=== PATIENT | male | born 1950 | race Caucasian/White ===

== ENCOUNTER 2017-06-27 14:40 | Inpatient (IN) | payer OTHER, MEDICARE ==
[~2017-06-27] VITALS: Ht 180.3 cm; Wt 68.0 kg
[2017-06-27 14:57] VITALS: BP 108/57
--- NOTE | 2017-06-27 15:02 | NUR ---
PT IS 66Y/O [employer] B[employer] TRIM TO ER FOR REPORTED THAT HE FELL AT HOME TODAY, PER [employer] CONSULTANT THAT PT DID NOT HIT THE HEAD AT THE TIME HOWEVER [employer] CONSULTANT CAUGHT HIM AND LET HIM SLOWLY, ALSO PER [employer] CONSULTANT PT HAS BEEN HAD RECTAL BLEEDING AND THAT HAPPENED AFTER PT HAD COLONOSCOPY RECENTLY, PT HAD HX DM TYE2, HTN, DEMENTIA, PROSTATE CANCER AND AUTISM. ALSO PT HX BORN WITH PREMATURE AND LEGALLY BLINDNESS SINCE BORN. PT CURRENTLY IN BED WITH [employer]IONS CONSULTANT BY BEDSIDE. PT IS AWAKE AND ALERT TO NAME, RESP EVEN AND REGULAR.
--- NOTE | 2017-06-27 15:52 | NUR ---
ER MD DR. GRANDA EVALUATING PT AT BEDSIDE.
[2017-06-27] MEDS ORDERED: LORazepam 2 MG/ML VIAL IVP ONE (16:05)
--- NOTE | 2017-06-27 16:29 | NUR ---
PT O2 SATURATION 100% ON ROOM AIR; RR EVEN/UNLABORED AT THIS TIME; EQUAL RISE/FALL OF CHEST NOTED AT THIS TIME; PT STATES " CAN WE NOT PUT THE OXYGEN ON HIM? IT WILL IRRITATE HIM AND HE WILL TAKE IT OFF"; ER MD DR. GRANDA NOTIFIED; PT POSITIONED FOR COMFORT; WILL CONTINUE TO MONITOR.
[2017-06-27 16:45] LABS: BASOPHILS # (AUTO) 0.2 K/uL (0.00-0.22); EOSINOPHILS # (AUTO) 0.1 K/uL (0-0.4); HEMATOCRIT 24.8 % (36-52); HEMOGLOBIN 7.8 g/dL (12.0-18.0); LYMPHOCYTES # (AUTO) 0.5 K/uL (2.0-11.5); MEAN CORPUSCULAR HEMOGLOBIN 25 pg (27-31); MEAN CORPUSCULAR HGB CONC 32 g/dL (33-37); MEAN CORPUSCULAR VOLUME 78 fL (80-94); MONOCYTES # (AUTO) 0.2 K/uL (0.8-1.0); NEUTROPHILS # (AUTO) 7.9 K/uL (1.8-7.7); PLATELET COUNT (AUTO) 241 K/uL (140-450); RED BLOOD CELL COUNT(AUTO) 3.18 MIL/uL (4.20-6.10); RED CELL DISTRIBUTION WIDTH 14.2 % (11.6-13.7); WHITE BLOOD COUNT (AUTO) 8.9 K/uL (4.8-10.8)
[2017-06-27 16:48] LABS: ANION GAP 14.3 (8-16); CARBON DIOXIDE 29.9 mmol/L (21-32); CREATININE 1.1 mg/dL (0.7-1.3); POTASSIUM 3.2 mmol/L (3.5-5.1)
[2017-06-27 16:54] LABS: ALBUMIN 3.5 g/dL (3.4-5.0); TOTAL BILIRUBIN 0.3 mg/dL (0.0-1.0)
[2017-06-27 16:59] LABS: PHENYTOIN (DILANTIN) 0.5 ug/ml (10.0-20.0)
--- NOTE | 2017-06-27 16:59 | NUR ---
PT TAKEN TO CT VIA [facility] ACCOMPANIED BY [facility] AT THIS TIME.
[2017-06-27] MEDS ORDERED: MORPHINE SULFATE 2 MG/ML SYR IVP PRN (17:45)
[2017-06-27] MEDS ORDERED: ONDANSETRON 4 MG/2 ML VIAL IVP PRN (17:45)
[2017-06-27] MEDS ORDERED: POTASSIUM CHLORIDE 10 MEQ TABER PO ONE (17:45)
--- NOTE | 2017-06-27 18:04 | NUR ---
give reported to GUMARO Abbott over tele units.
--- NOTE | 2017-06-27 18:06 | NUR ---
took pt to restroom with limit assisted at this time.
--- NOTE | 2017-06-27 18:20 | NUR ---
Patient will be admitted to care of DR GARCIAS. Admited to TELE . Will go to room 107/A. Belongings list completed. Report to ALONDRA NAIK.
[2017-06-27] MEDS: NACL 0.9% 1,000 ML IV SCH ×2 (19:10→22:06)
--- NOTE | 2017-06-27 19:15 | NUR ---
BLOOD TRANSFUSION INITIATED
--- NOTE | 2017-06-27 19:23 | NUR ---
PATIENT REPORT GIVEN AT BEDSIDE. PATIENT ENDORSED IN STABLE CONDITION
--- NOTE | 2017-06-27 19:24 | NUR ---
ADMITTED A 66M FROM ER. REPORT GIVEN BY AM NURSE. WITH I UNIT PRBC BLOOD TRANSFUSION ALREADY STARTED ON THE RT WRIST #20. CLEAR AND PATENT . PT IS AWAKE ,BUT LEGALLY BLIND. ON TELE MONITOR. UNABLE TO GET ANY MEDICAL INFORMATION BUR TO MENTAL STATUS. NO FAMILY MEMBERS PRESENT. VITAL SIGNS TAKEN AND STABLE. SKIN INTACT. BED ON LOW POSITION, SIDE RAILS UP WITH PADS FOR SEIZURE PRECAUTIONS. FREQUENT ROUNDS NEEDED. CALL LIGHT PLACE WITHIN EASY REACH. WILL CONTINUE TO MONITOR.
[2017-06-27 19:56] VITALS: BP 124/60
--- NOTE | 2017-06-27 20:30 | NUR ---
TRIED CALLING ROBYN BEY ,SISTER ON PHONE BUT NO ANSWER. WILL TRY AGAIN LATER.
--- NOTE | 2017-06-27 20:40 | NUR ---
BLOOD TRANSFUSION STILL GOING ON. VITAL SIGNS STABLE. AFEBRILE. NO REACTION TO BLOOD NOTED AT THIS TIME. WILL CONTINUE TO MONITOR.
--- NOTE | 2017-06-27 21:20 | NUR ---
PT REFUSED SCD MACHINE . WILL TRY LATER.
--- NOTE | 2017-06-27 21:50 | NUR ---
BLOOD TRANSFUSION DONE. VITAL SIGNS TAKEN. STABLE. NO REACTION NOTED ON THE BLOOD. WILL ORDER REPEAT HGB AND HCT AT 2350.
--- NOTE | 2017-06-27 22:18 | NUR ---
TRIED CALLING AGAIN SISTER ROBYN BUT STILL THE SAME HER PHONE IS FULL AND CAN'T RECEIVE ANY CALL AT THIS TIME. WILL TRY AGAIN LATER IN AM.
--- NOTE | 2017-06-27 22:35 | NUR ---
@2233 HR ON THE MONITOR 38/MIN. CHECKED ON PT . SLEEPING AT THIS TIME. NO S/S OF ANY DISTRESS NOTED. AWAKEN, YELLING AND THEN HR BACK TO 62/MIN. WILL CONTINUE TO MONITOR.
[2017-06-28 00:12] VITALS: BP 169/62
[2017-06-28 00:15] LABS: HEMATOCRIT 29.5 % (36-52); HEMOGLOBIN 9.1 g/dL (12.0-18.0)
--- NOTE | 2017-06-28 00:40 | NUR ---
PT VERY AGITATED . TRYING TO GET OUT OF BED ,YELLING AND HARD TO CONTROL. PAGED DR. PANDA, DR. GARCIAS MENSWEAR SALESPERSON. CALLED BACK AND MADE AWARE WITH ORDER.
[2017-06-28] MEDS ORDERED: BENA20TA PO (00:43)
[2017-06-28] MEDS ORDERED: KEP500 PO (00:43)
[2017-06-28] MEDS: LORazepam 2 MG/ML VIAL IVP PRN ×2 (00:46→06:59)
[2017-06-28] MEDS ORDERED: LORazepam 2 MG/ML VIAL ONE (00:53)
--- NOTE | 2017-06-28 02:19 | NUR ---
PAGED DR. GARCIAS WAS PAGED FOR SEVERAL EPISODES OF SB LOWEST HR 38 -41/MIN. ASYMPTOMATIC. CALLED BACK. MADE AWARE .NO NEW ORDER MADE LONG PT IS ASYMPTOMATIC.WILL CONTINUE TO MONITOR,
--- NOTE | 2017-06-28 02:26 | NUR ---
IV ACCESS PULLED OUT . UNABLE TO START A NEW IV BY GUMARO THOMAS. CALLED ER AND GUMARO WADDELL. STARTED A NEW IV ACCESS ON THE RT AC#20.CLEAR AND PATENT. WRAPPED WITH KERLIX . WILL CONTINUE TO MONITOR. Addendum: 06/28/17 at 0227 by Mer Dominguez RN IV INSERTED @0125 .
[2017-06-28] MEDS ORDERED: BICA50TA1 PO (03:03)
[2017-06-28] MEDS ORDERED: TAMS0.4C96 PO (03:05)
[2017-06-28] MEDS ORDERED: LAM25 PO (03:11)
[2017-06-28] MEDS ORDERED: LORA-476 PO (03:11)
[2017-06-28] MEDS ORDERED: METF1000 PO (03:21)
[2017-06-28] MEDS ORDERED: FLUR15CA PO (03:21)
[2017-06-28] MEDS ORDERED: ATOR10TA PO (03:21)
[2017-06-28] MEDS ORDERED: TRAZ-286 PO (03:21)
[2017-06-28] MEDS ORDERED: ASPI81CT89 PO (03:21)
[2017-06-28] MEDS ORDERED: DONE5TAB6 PO (03:21)
[2017-06-28] MEDS: NACL 0.9% 1,000 ML IV SCH (03:42)
--- NOTE | 2017-06-28 04:05 | NUR ---
PT IS AWAKE AND STILL TRYING TO GET OUT OF BED. VOIDED ON THE FLOOR. CLEANED AND KEPT DRY. PT ASSISTED TO SIT UP ON THE CHAIR. WILL CONTINUE TO MONITOR.
[2017-06-28 04:06] VITALS: BP 128/89
--- NOTE | 2017-06-28 05:17 | NUR ---
PT HAS BEEN KEPT NPO SINCE ADMISSION.
--- NOTE | 2017-06-28 06:09 | NUR ---
NO STOOL NOR ANY RECTAL BLEEDING NOTED DURING THE SHIFT.
[2017-06-28 06:51] LABS: BASOPHILS # (AUTO) 0.1 K/uL (0.00-0.22); BASOPHILS % (AUTO) 1.5 % (0.0-2.0); EOSINOPHILS # (AUTO) 0.1 K/uL (0-0.4); HEMATOCRIT 33.5 % (36-52); HEMOGLOBIN 10.8 g/dL (12.0-18.0); LYMPHOCYTES # (AUTO) 0.8 K/uL (2.0-11.5); LYMPHOCYTES % (AUTO) 10.3 % (20.5-51.1); MEAN CORPUSCULAR HEMOGLOBIN 26 pg (27-31); MEAN CORPUSCULAR HGB CONC 32 g/dL (33-37); MEAN CORPUSCULAR VOLUME 80 fL (80-94); MONOCYTES # (AUTO) 0.5 K/uL (0.8-1.0); MONOCYTES % (AUTO) 5.7 % (1.7-9.3); NEUTROPHILS # (AUTO) 6.4 K/uL (1.8-7.7); NEUTROPHILS % (AUTO) 81.5 % (42.2-75.2); PLATELET COUNT (AUTO) 271 K/uL (140-450); RED CELL DISTRIBUTION WIDTH 14.2 % (11.6-13.7)
[2017-06-28 06:59] LABS: ANION GAP 11.6 (8-16); CARBON DIOXIDE 28.7 mmol/L (21-32); CREATININE 0.9 mg/dL (0.7-1.3); POTASSIUM 3.3 mmol/L (3.5-5.1)
--- NOTE | 2017-06-28 06:59 | NUR ---
PT STARTING TO REALLY GET VERY AGITATED AGAIN. ATIVAN 1 MG IVP GIVEN ORDERED PRN.
[2017-06-28 07:22] LABS: WHITE BLOOD COUNT (AUTO) 7.9 K/uL (4.8-10.8)
--- NOTE | 2017-06-28 07:25 | NUR ---
PT REPORT RECEIVED FROM THE NIGHT RN AT THE BEDSIDE. PT IS AWAKE, ALERT, ORIENTED X1. PT IS ABLE TO FOLLOW SIMPLE COMMANDS. IV NOTED ON THE RT WRIST #20, INFUSING WELL. PT IS LEGALLY BLIND, SIGN IN PLACE. ON TELE MONITOR. VITAL SIGNS TAKEN AND STABLE. SKIN INTACT. BED IN LOW POSITION, SIDE RAILS UP WITH PADS FOR SEIZURE PRECAUTIONS. CALL LIGHT WITHIN REACH. WILL CONTINUE TO MONITOR.
--- NOTE | 2017-06-28 07:28 | NUR ---
ENDORSED PT IN STABLE CONDITION TO AM NURSE FOR CONTINUITY OF CARE.
[2017-06-28 08:00] VITALS: BP 139/82
[2017-06-28] MEDS ORDERED: PANTOPRAZOLE 40 MG INJ VIAL IVP SCH (09:00)
--- NOTE | 2017-06-28 09:02 | NUR ---
FNS REFERRAL RECEIVED ON 06/27 FOR "NOT APPLICABLE" DOES NOT MEET HIGH NUTRITION RISK CRITERIA. PATIENT HAS BEEN SCREENED AND CATEGORIZED MODERATE NUTRITION RISK. PATIENT WILL BE SEEN WITHIN 3-5 DAYS OF ADMISSION. 06/30/17-07/02/[address]
--- NOTE | 2017-06-28 09:30 | NUR ---
PT SEEN BY DR. PANDA. DR PANDA WILL CONTACT DR. CALABRESE ABOUT COLONOSCOPY. PT IS STABLE, NO DISTRESS NOTED.
[2017-06-28] MEDS ORDERED: BOWEL EVACUANT DRINK 4,000 ML PDS PO SCH (10:00)
--- NOTE | 2017-06-28 10:22 | NUR ---
CM NOTE INITIAL REVIEW FAXED TO [facility] / FAX# [phone], ATTN: LARS #[phone]
--- NOTE | 2017-06-28 10:35 | NUR ---
TOOK PT TO THE RESTROOM, PT HAD A BM. STOOL IS HARD. NO BLEEDING NOTED IN THE STOOL, HOWEVER, THERE IS MINIMAL BLEEDING NOTED ON THE TOILET PAPER.
[2017-06-28] MEDS ORDERED: MIDAZOLAM 2 MG/2 ML VIAL ONE (11:22)
[2017-06-28] MEDS ORDERED: fentaNYL 0.05 MG/ML VIAL ONE (11:22)
[2017-06-28] MEDS ORDERED: diphenhydrAMINE 50 MG/ML VIAL ONE (11:23)
[2017-06-28 12:00] VITALS: BP 135/77
[2017-06-28] MEDS ORDERED: FERR325E14 PO ×2 (12:59→16:02)
[2017-06-28] MEDS ORDERED: LACT10SO1 PO ×2 (13:00→16:02)
--- NOTE | 2017-06-28 13:00 | NUR ---
PT HAD LUNCH, FULL LIQ DIET. NO SOB OR DISTRESS NOTED.
--- NOTE | 2017-06-28 16:00 | NUR ---
PT DISCHARGED PER MD ORDER. MEDICATION TEACHING AND DISCHARGE INSTRUCTION GIVEN. PT'S SISTER VERBALIZED UNDERSTANDING. PT'S SISTER SIGNED DISCHARGE PAPER WORK. PT VITALS TAKEN. IV CATH DC'ED, TIP INTACT, PRESSURE APPLIED. PT DISCHARGED IN STABLE CONDITION AND WITH ALL HIS BELONGINGS.
[2017-06-28] MEDS ORDERED: MESA500C PO (16:02)
== END 2017-06-28 16:00 | disposition home or self-care (01) | DRG 253 ==
LOC: MED 14:40 → MTU 17:48
PROVIDERS: ADMIT Hospitalist; ATTEND Hospitalist
PROC: 30233N1 Transfusion of Nonautologous Red Blood Cells into Peripheral Vein, Percutaneous Approach (ICD-10-PCS; principal; 2017-06-27)
DX: K92.2 Gastrointestinal hemorrhage, unspecified (principal); E87.0 Hyperosmolality and hypernatremia; G40.909 Epilepsy, unspecified, not intractable, without status epilepticus; D50.0 Iron deficiency anemia secondary to blood loss (chronic); F84.0 Autistic disorder; H54.7 Unspecified visual loss; F03.90 Unspecified dementia, unspecified severity, without behavioral disturbance, psychotic disturbance, mood disturbance, and anxiety; F79 Unspecified intellectual disabilities; W19.XXXA Unspecified fall, initial encounter; Z85.46 Personal history of malignant neoplasm of prostate; Z79.899 Other long term (current) drug therapy; Z88.0 Allergy status to penicillin; Y99.8 Other external cause status; Y92.89 Other specified places as the place of occurrence of the external cause; Y93.89 Activity, other specified
CPT/HCPCS: 36415; 70450; 71010; 80053; 80185; 83735; 83880; 84484; 85018; 85025; 85610; 85730; 86886; 86900; 86901; 86920; 87081; 96374; 99285; C9113; J1200; J2060; J2250; J3010; J7030; P9016